=== PATIENT | male | born 1995 | race Two or more races ===

== ENCOUNTER 2019-04-05 07:13 | Emergency (ER) | payer SELFPAY ==
--- NOTE | 2019-04-05 07:54 | EDM.PDOC ---
ED HPI GENERAL MEDICAL PROBLEM - General Chief Complaint: Genitourinary Problem Stated Complaint: TESTICULAR PAIN Time Seen by Provider: 04/05/19 07:40 Source of Information: Reports: Patient History Limitations: Reports: No Limitations - History of Present Illness INITIAL COMMENTS - FREE TEXT/NARRATIVE: 23-year-old male presents to ER with ongoing left testicular pain 2 days this episode. Since he has had this before in the past same type of dull throbbing pain/pressure where he was seen and had an ultrasound which was negative for torsion get a full workup for STD which is negative. His diagnosed with he believes epididymitis. This episode has been intermittent pain worse when he was up and working wearing his thermal underwear and having pressure on his testicles states is mostly on the backside of the left only about 6 /10 he denies any increase of pain or change of discomfort. Last unprotected sex was approximately over 2 months ago he denies any discharge dysuria back pain scrotal or rectal pain no pain with erection no noted ulcerations lumps or bumps on penis. No fever or chills abdominal pain no rashes Duration: Day(s): Associated Symptoms: Reports: No Other Symptoms Treatments [employer]: Denies: Acetaminophen, Aspirin, NSAIDS Left Perineal Area Pain Score (Numeric/FACES): 4 - Related Data Allergies Allergy/AdvReac Type Severity Reaction Status Date / Time No Known Allergies Allergy Verified 04/05/19 07:37 Home Meds: Home Meds . [No Known Home Meds] 04/05/19 [History] Past Medical History - Past Health History Medical/Surgical History: Denies Medical/Surgical History Social & Family History - Tobacco Use Smoking Status *Q: Never Smoker - Recreational Drug Use Recreational Drug Use: No ED ROS GENERAL - Review of Systems Review Of Systems: See Below Constitutional: Reports: No Symptoms HEENT: Reports: No Symptoms Respiratory: Reports: No Symptoms Cardiovascular: Reports: No Symptoms Endocrine: Reports: No Symptoms GI/Abdominal: Denies: Abdominal Pain, Anorexia, Nausea : Reports: Pain. Denies: Discharge, Dysuria, Flank Pain, Frequency, Hematuria , Incontinence, Urgency, Urinary Retention Musculoskeletal: Reports: No Symptoms Skin: Reports: No Symptoms Neurological: Reports: No Symptoms Psychiatric: Reports: No Symptoms Hematologic/Lymphatic: Reports: No Symptoms Immunologic: Reports: No Symptoms ED EXAM, RENAL/ - Physical Exam Exam: See Below Exam Limited By: No Limitations General Appearance: Alert, WD/WN, No Apparent Distress Throat/Mouth: Normal Inspection, Normal Lips, Normal Teeth, Normal Gums, Normal Oropharynx, Normal Voice, No Airway Compromise Head: Atraumatic, Normocephalic Neck: Normal Inspection, Supple, Non-Tender, Full Range of Motion Respiratory/Chest: No Respiratory Distress, No Accessory Muscle Use Cardiovascular: Regular Rate, Rhythm, No Edema, No Gallop, No JVD GI/Abdominal: Normal Bowel Sounds, Soft, Non-Tender, No Organomegaly, No Distention (Male) Exam: No Hernia, Normal Inspection, Circumcised, Other (Well- developed descended bilateral testicles mild tenderness to palpation over the posterior pole of the left negative for the right patient's symptoms were alleviated with noted elevation of bilateral testicles. Normal cremasteric reflex no evidence of any ulcerations eruptions to the head of the penis/shaft) . No: Scrotal Swelling, Testicular Mass, Testicular Tenderness (R) Back Exam: Normal Inspection, Full Range of Motion. No: CVA Tenderness (L), CVA Tenderness (R) Extremities: Normal Inspection, Normal Range of Motion, Non-Tender, No Pedal Edema Neurological: Alert, Oriented, CN II-XII Intact, Normal Cognition, Normal Gait Psychiatric: Normal Affect, Normal Mood Skin Exam: Warm, Dry, Intact, Normal Color, No Rash Lymphatic: Other (No inguinal adenopathy noted) Course - Vital Signs Text/Narrative:: Patient was educated on signs and symptoms of epididymitis need follow-up with a urologist he states he is traveling secondary to work and will be home in [place] in the next week to 2 weeks he may try there he will be given a number for urologist here in [place]. He will also be given a number for local health department for STD check if he wishes. He'll be covered with doxycycline 100 mg 1 by mouth every 12 hours for epididymitis for 12 days his also instructed to take [id number] Tylenol Motrin follow directions on the bottle is instructed to apply ice to the area as much as possible as tolerated with a cold Coke can/frozen bottle always making sure that he is using a towel around both ice frozen bottle no direct contact with the testicles / ice or the bottle Patient gave verbal understanding on the follow-up Last Recorded V/S: Last Vital Signs Temp 36.3 C 04/05/19 07:23 Pulse 75 04/05/19 07:23 Resp 12 04/05/19 07:23 BP 165/84 H 04/05/19 07:23 Pulse Ox 96 04/05/19 07:23 Departure - Departure Time of Disposition: 08:05 Disposition: Home, Self-Care 01 Condition: Good Clinical Impression: Epididymitis - Discharge Information *PRESCRIPTION DRUG MONITORING PROGRAM REVIEWED*: No *COPY OF PRESCRIPTION DRUG MONITORING REPORT IN PATIENT TRINA: No - Problem List & Annotations (1) Epididymitis SNOMED Code(s): 30075943 Code(s): N45.1 - EPIDIDYMITIS Status: Acute
== END 2019-04-05 08:11 | disposition home or self-care (01) ==
LOC: VM.ED 07:13
DX: N45.1 Epididymitis (principal)
CPT/HCPCS: 99283; 99283-GF